=== PATIENT | female | born 1985 | race Caucasian/White ===

== ENCOUNTER 2019-01-01 11:18 | Inpatient (IN) | payer OTHER ==
[~2019-01-01] VITALS: Ht 157.5 cm; Wt 77.6 kg
[2019-01-12] MEDS ORDERED: FOLIC ACID1 MG PO (19:19)
== END 2019-01-14 14:45 | DRG 807 ==
LOC: OB/GYN 01-08 13:30 → LDR 01-12 17:14 → OB/GYN 01-12 23:50
PROVIDERS: ADMIT Specialist
PROC: 10E0XZZ Delivery of Products of Conception, External Approach (ICD-10-PCS; principal; 2019-01-12)
PROC: 0KQM0ZZ Repair Perineum Muscle, Open Approach (ICD-10-PCS; 2019-01-12)
PROC: 4A0HXFZ Measurement of Products of Conception, Cardiac Rhythm, External Approach (ICD-10-PCS; 2019-01-12)
DX: O70.1 Second degree perineal laceration during delivery (principal); Z37.0 Single live birth; O24.410 Gestational diabetes mellitus in pregnancy, diet controlled; Z3A.39 39 weeks gestation of pregnancy